=== PATIENT | male | born 1955 | race Caucasian/White ===

== ENCOUNTER → 2021-11-04 10:20 | Outpatient (CLI) | payer MEDICARE, OTHER, SELFPAY ==
--- NOTE | 2021-11-04 10:28 | XR_ITS ---
FINAL REPORT CLINICAL HISTORY: RT KNEE PAIN,SWELLING FINDINGS: RIGHT KNEE 3 views of the right knee were obtained. There is no acute fracture or dislocation. On the lateral view, there is a small to moderate joint effusion and a small osteophyte arising from the superior margin of the patella. IMPRESSION: Small to moderate joint effusion and a small osteophyte arising from the superior margin of the patella. Reviewed, Interpreted and Dictated by Naman Hunter MD Transcribed by Betty Jauregui Authenticated by Naman Hunter MD on 11/04/2021 11:24:52 AM [facility]
== END ==
PROVIDERS: PCP Nurse Practitioner Family; Visit Provider Nurse Practitioner Family
DX: M25.561 Pain in right knee (principal); M25.461 Effusion, right knee
CPT/HCPCS: 73562